=== PATIENT | male | born 1995 ===

== ENCOUNTER 2017-06-12 18:34 | Emergency (ER) | payer OTHER ==
[2017-06-12 18:43] VITALS: BP 120/77; PULSE 79; RESP 18; TEMP 98.5; O2SAT 100
[2017-06-12] MEDS ORDERED: Bacitracin 500 Units/gm Oint Foilpak UD TOP ONE (18:50)
[2017-06-12] MEDS ORDERED: Bacitracin 500 Units/gm Oint Foilpak UD ONE (18:56)
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
--- NOTE | 2017-06-13 09:33 | RAD ---
PROCEDURE: Left Knee Radiographs. HISTORY: Pain. COMPARISON: None. FINDINGS: BONES: A 1.6 cm eccentric geographic radiolucent lesion with thin sclerotic rim borders the posterior-medial tibial metaphyseal cortex. No pathological fracture here. This is an incidental finding. No fracture seen JOINTS: . No osteoarthritis. JOINT EFFUSION: None. OTHER FINDINGS: Patellar Tularosa status suggested IMPRESSION: No fracture. Incidental findings: Benign appearing cystic lesion proximal tibial metaphysis - if no prior radiographs can ensure stability, consider rechecking with left tibial x-ray in 6 to 12 months. 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
== END 2017-06-12 19:53 | disposition home or self-care (01) ==
LOC: C.ER 18:34
DX: S80.212A Abrasion, left knee, initial encounter (principal); V13.4XXA Pedal cycle driver injured in collision with car, pick-up truck or van in traffic accident, initial encounter; Y92.89 Other specified places as the place of occurrence of the external cause; Z23 Encounter for immunization